=== PATIENT | male | born 1980 | race Caucasian/White ===

== ENCOUNTER → 2018-12-19 | Outpatient (CLI) | payer BC, SELFPAY ==
[2017-05-23 12:51] VITALS: BMI 27.3
== END | disposition home or self-care (01) ==
LOC: LABSPEC 15:52
PROVIDERS: Family Provider Family Medicine; PCP Family Medicine; Referring Provider Otolaryngology Otolaryngology/Facial Plastic Surgery; Visit Provider Otolaryngology Otolaryngology/Facial Plastic Surgery
DX: J02.9 Acute pharyngitis, unspecified (principal)
CPT/HCPCS: 87070

== ENCOUNTER → 2018-12-26 | Outpatient (CLI) | payer BC, SELFPAY ==
[2017-05-23 12:51] VITALS: BMI 27.3
--- NOTE | 2018-12-26 08:32 | RAD_ITS ---
STUDY: X-RAY - ESOPHAGUS (BARIUM SWALLOW) WITH FLUOROSCOPY REASON FOR EXAM: Male, 38 years old. Sore throat. Hoarseness. TECHNIQUE: 18 view(s) of the esophagus were obtained following swallowing of barium. FLUOROSCOPY TIME (if supplied): (0:25) minutes/seconds COMPARISON: None. FINDINGS: There is no demonstrated esophageal foreign body. There is no demonstrated stricture or mucosal abnormality. Normal gastroesophageal junction, without a demonstrated hiatal hernia. The patient ingested a 12 mm tablet and barium without any difficulty. Normal visualized aortic arch and descending thoracic aorta. Normal visualized pulmonary parenchyma. Normal visualized osseous structures of the thorax. RAD/Esophagus Only IMPRESSION: Normal plain film x-ray examination (barium swallow) of the esophagus. Electronically Signed: Kike Adams, at 10:57 EDT , Service support ,
== END | disposition home or self-care (01) ==
PROVIDERS: Referring Provider Otolaryngology Otolaryngology/Facial Plastic Surgery; Visit Provider Otolaryngology Otolaryngology/Facial Plastic Surgery
DX: R13.10 Dysphagia, unspecified (principal); K21.9 Gastro-esophageal reflux disease without esophagitis
CPT/HCPCS: 74220

== ENCOUNTER → 2024-02-08 | Outpatient (CLI) | payer OTHER, SELFPAY ==
--- NOTE | 2024-02-08 10:10 | MRI_ITS ---
STUDY: MRI RIGHT ELBOW REASON FOR EXAM: Male, 43 years old. rule out distal biceps tear TECHNIQUE: Standardized fat and water weighted pulse sequences were obtained in all 3 orthogonal planes. COMPARISON: X-ray 02/16/2024 FINDINGS: Normal radio-capitellum articulation. Normal radial collateral ligamentous complex. Normal common extensor tendon. Normal ulnotrochlear articulation. Normal ulnar collateral ligamentous complex. Normal common flexor tendon. The cubital tunnel is normal, with a normal ulnar nerve. There is tendinosis with a partial tear of the distal biceps tendon, but without a complete rupture. Normal lacertus fibrosis. Normal brachialis musculotendinous insertion. Normal triceps tendon and teno-osseous insertion. Normal olecranon process. The visualized distal humerus, proximal radius, and ulna are normal. The visualized muscles of the distal arm and proximal forearm are normal. The soft tissue structures are unremarkable. MRI/Upper Ext Joint Only(Routine) IMPRESSION: Partial tear of the biceps tendon insertion with adjacent fluid but no retraction. Electronically Signed: Elia Veliz MD at 11:33 EDT ,
== END | disposition home or self-care (01) ==
LOC: MRI 10:03
PROVIDERS: PCP Internal Medicine; Referring Provider Orthopaedic Surgery Sports Medicine; Visit Provider Orthopaedic Surgery Sports Medicine
DX: M25.521 Pain in right elbow (principal)
CPT/HCPCS: 73221

== ENCOUNTER 2024-09-12 16:30 | Outpatient (RCR) | payer BC, OTHER, SELFPAY ==
--- NOTE | 2024-08-15 18:08 | HP.PTEVAL ---
Patient's Visit Information Visit Information Visit Information: RUBI ASHRAF is a 43 year old M referred to Physical Therapy by Dr. Ulices Mascorro MD with a diagnosis of Pain in R elbow and R partial distal bicep tendon tear. Date of Evaluation: 08/15/24 Physical Therapist: ISHA Abbasi Visit Plan Frequency: 2x /Week Duration: 2 Months Plan: 2X/ week for 4 weeks for US to the distal bicep tendon, slowly load the bicep, eccentrics, R elbow strength and R shoulder ER/flexion exercises with HEP Subjective Subjective: He hurt his elbow 7 months ago and it was twisted and his shoulder was IR and he heard a pop and heard a pop. MRI was done 7 months ago. R hand dominant. He has full shoulder AROM. He is constant pain when he uses the bicep. He has pain in his R elbow in the front in the forearm and it is his dominant arm. He has tried to take it easy with that arm for 7 months to let it heal and he is painful if his elbow is bent for too long or if he goes to lift something. Pain R bicep tendon pain: Pain Intensity (Out of 10): 2 Objective Objective: R hand dominant: R hand 90# and L 84# B elbow flexion 152 degrees -2 degrees from full extension on the R and full extension on the L Bicep strength 8.1 and 11.4 (pain on the R) Tricep R 12.6 and L 11.6 Shoulder flex 9.8 and 9.6 Shoulder ER 12# and L 14.9 (pain on the R) Balance/Special Test Scores Quick DASH Score: 36.3625 Goals Goal 1:: I HEP Rehabilitation Potential Rehabilitation Potential: Good Anticipated Interventions Patient/Client Instruction: Educate patient on: Condition and Plan of Care For the Purpose of:: To decrease pain, To increase ROM, To improve nutrient delivery to tissue, To improve muscle performance and motor function, To improve ability to perform ADL's, To increase tolerance to activity/condition/position, To improve ability of physical actions for home/community/work/leisure, To improve health of tissue, To decrease soft tissue restriction and To increase flexibility/ROM Therapeutic Exercise to Include: Strength training, Endurance training, Flexibilty training, Passive ROM, Active ROM and Scapular Strength/Stabilization For the Purpose of:: To decrease pain, To increase ROM, To improve nutrient delivery to tissue, To improve muscle performance and motor function, To improve ability to perform ADL's, To increase tolerance to activity/condition/position, To improve health of tissue, To decrease soft tissue restriction and To increase flexibility/ROM Manual Therapy Techniques to Include: Mobilization, Passive ROM and Soft tissue mobilization For the Purpose of:: To decrease pain, To increase ROM, To improve muscle performance and motor function, To improve health of tissue and To increase flexibility/ROM Cryotherapy (ice pack, ice massage): Yes Thermo therapy (hot pack): Yes Ultrasound (thermal/non thermal): Yes For the Purpose of:: To decrease pain, To increase ROM, To improve nutrient delivery to tissue and To improve muscle performance and motor function Text: Thank you for the opportunity to evaluate your patient. For Medicare and Medicare HMO plans, please review the plan of care and approve it. It will need to be FAXED BACK to us at [phone] for Medicare purposes. For Medicare only, by signing this I certify the plan of care. Please let me know if there are questions or concerns regarding this plan of care. Physician Signature: Date:
--- NOTE | 2024-09-12 16:55 | HP.PTDCSUM ---
Discharge Summary D/C summary: It has been my pleasure to treat RUBI ASHRAF referred by Dr. Ulices Mascorro MD, with the diagnosis of Pain in R elbow and R partial distal bicep tendon tear for a total of 6 visit(s). Discharge Date: 09/12/24 Please see the following information for a summary of their discharge status. Subjective Subjective: Pt reports that it helped in certain situations. He still feels numb and weak. If he twists his arm (demonstrates IR) or if he is lifting up on something he feels painful. Extreme bicep flexion is painful. He reports a numb feeling right now. Pt might try and workout a little more at home and wait and see if he improves. He thinks that the US did help. He feels that he will do it on his own for a little bit and if he can't get his bicep feeling better he will go back and see him. Pain R bicep tendon pain: Pain Intensity (Out of 10): 3 Overall Improvement % Improvement: 20 Objective Objective/Function: MMT: Bicep went from 8.1# to 8.9# Tricep went from 12-12.7# Goals Goal 1:: I HEP Goal Progress: Goal Met Plan Plan: DC PT to indep strengthening. Pt will contact the Dr if the pain does not go away D/C Information Discharge Comments: DC PT to indep strengthening and RTD if does not continue to get better d/c sentence: If there are questions or concerns regarding this patient's physical therapy, please feel free to call me at [phone]. Thank you for the referral of this patient. Sincerely, Charla Tovar, MPT Balance/Gait/Functional tests Balance/Special Test Scores Quick DASH Score: 40.9075 Improvement % Improvement: 20
== END 2024-09-12 19:00 | disposition home or self-care (01) ==
LOC: PT 16:30
PROVIDERS: PCP Internal Medicine; Referring Provider Orthopaedic Surgery Sports Medicine; Visit Provider Orthopaedic Surgery Sports Medicine
DX: M25.521 Pain in right elbow (principal)
CPT/HCPCS: 97035; 97110; 97161; 97530